=== PATIENT | male | born 1980 | race Caucasian/White ===

== ENCOUNTER 2017-12-04 17:35 | Emergency (ER) | payer SELFPAY ==
[~2017-12-04] VITALS: Ht 182.9 cm; Wt 99.8 kg
[~2017-12-04 17:35] MED LIST: AMOX875T60 PO; CYCL10TA29 PO; HYDR-4309 PO; IBUP600T22 PO; IBUP800T37 PO; LOR5/325 PO; NAPR-724 PO
[2017-12-04] MEDS ORDERED: FLUORESCEIN SOD 1 MG 1 EA STRP OD ONE (17:50)
[2017-12-04] MEDS ORDERED: PROPARACAINE 0.5% OP 15ML BTL OD ONE (17:50)
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
[2017-12-04] MEDS ORDERED: TOBRAMYCIN 0.3% OP SOLN 5 ML OD ONE (18:15)
[2017-12-04 18:19] VITALS: BP 123/86
== END 2017-12-04 18:27 | disposition home or self-care (01) ==
LOC: ER 18:00
DX: T15.91XA Foreign body on external eye, part unspecified, right eye, initial encounter (principal)
CPT/HCPCS: 99282

== ENCOUNTER 2018-06-18 18:19 | Emergency (ER) | payer SELFPAY ==
[~2018-06-18 18:19] MED LIST changes: -NAPR-724 PO; +NAPR500T31 PO
[2018-06-18 18:27] VITALS: BP 112/86
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
[2018-06-18] MEDS ORDERED: FLUORESCEIN SOD 1 MG 1 EA STRP OS ONE (18:35)
[2018-06-18] MEDS ORDERED: PROPARACAINE 0.5% OP 15ML BTL OS ONE (18:35)
[2018-06-18] MEDS ORDERED: TOBRAMYCIN/DEX OP SUSP 2.5 ML OS ONE (18:50)
== END 2018-06-18 19:02 | disposition home or self-care (01) ==
LOC: ER 19:00
DX: T26.12XA Burn of cornea and conjunctival sac, left eye, initial encounter (principal)
CPT/HCPCS: 99283

== ENCOUNTER 2018-11-14 14:01 | Emergency (ER) | payer SELFPAY ==
[~2018-11-14 14:01] MED LIST changes: -HYDR-4309 PO; +HYDR-653 PO
[2018-11-14] MEDS ORDERED: NS(*) 0.9% 1000 ML BAG 1,000 ML IV ONE ×2 (14:14→14:15)
[2018-11-14] MEDS ORDERED: ONDANSETRON 4 MG/2 ML VIAL IVP ONE (14:15)
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
[2018-11-14 14:34] LABS: PLATELET COUNT, AUTOMATED 387 K/uL (150-450)
== END 2018-11-14 15:26 | disposition home or self-care (01) ==
LOC: ER 14:22
DX: K52.9 Noninfective gastroenteritis and colitis, unspecified (principal)
CPT/HCPCS: 83690; 85025; 96361; 96374; 99284; J2405; J7030; 82040; 82247; 82310; 82374; 82435; 82565; 82947; 84075; 84132; 84155; 84295; 84450; 84460; 84520